=== PATIENT | male | born 1955 | race Caucasian/White ===

== ENCOUNTER 2025-03-18 21:28 | Emergency (ER) | payer MEDICARE, SELFPAY ==
[2025-03-18 21:43] VITALS: BP 120/73; PULSE 88; RESP 18; TEMP 36.6; O2SAT 94; BMI 30.8
--- NOTE | 2025-03-18 22:11 | ED_ITS ---
HPI - Altered Mental Status General Chief Complaint: Altered Mental Status Stated Complaint: H[place] from [place] ended up in [place]. Time Seen by Provider: 03/18/25 21:45 Source: family and EMS Mode of arrival: EMS Limitations: other History of Present Illness ED Provider: Dr. Coco Ayon HPI narrative: patient comes to the emergency room accompanied by EMS. Patient is a resident of [place], [place]. patient has history of frontotemporal dementia, frontotemporal CVA. Patient is awake alert, has no complaints, but given his history of dementia, he is unable to give any history. According to EMS, the patient was stopped by PD. Patient has a sharp location on his phone, and his family in [place] was able to track where he was. They called PD and they stopped him and brought him to the emergency room. Patient is unharmed. Patient is awake, alert, no complaints, states that he was on his way to get cup cakes. Patient drove a proximally 4 hours to [place]. Related Data Allergies Allergy/AdvReac Type Severity Reaction Status Date / Time No Known Allergies Allergy Verified 03/18/25 22:04 Review of Systems Review of Systems: Constitutional : No Weight loss, No Fever, No Chills, No Night Sweats, No Fatigue, No Malaise ENT/Mouth : No Hearing loss, No Ear Pain, No Nasal Congestion, No Sinus Pain, No Hoarseness, No sore throat, No Rhinorrhea, No Swallowing Difficulty Eyes: No Eye Pain, No Swelling, No Redness, No Foreign Body, No Discharge, No Vision Changes Cardiovascular : No Chest Pain, No SOB, No Dyspnea on Exertion, No Orthopnea, No Edema, No Palpitations Respiratory : No Cough, No Sputum, No Wheezing, No Smoke Exposure, No Dyspnea Gastrointestinal : No Nausea, No Vomiting, No Diarrhea, No Constipation, No abdominal Pain, No Hematochezia, No Melena Genitourinary : no irregular bleeding, No Dysuria, No Urinary Frequency, No Hematuria, No Urinary Incontinence, No Urgency, No Flank Pain, No Urinary Flow Changes, No Hesitancy Musculoskeletal : No joint pain, No Myalgias, No Joint Swelling Skin : No Skin Lesions, No rash Neuro : No Weakness, No Numbness, No Paresthesias, No Loss of Consciousness, No Dizziness, No Headache Psych : No Anxiety/Panic, No Depression, No SI/HI/AH/VH, No Social Issues, Heme/Lymph: No Bruising, No Bleeding,No Lymphadenopathy Endocrine : No Polyuria, No Polydipsia, No Temperature Intolerance Yes Other ( patient has history of dementia, however he has no complaints) ON LICENSE OF [facility] Social History Social History Do you have a plan to hurt others: No Plan Physical Exam ED Exam Exam: Appearance: Alert. Oriented X2. No acute distress. Eyes: Pupils equal, round and reactive to light. ENT: Pharynx normal. Neck: Normal inspection. Neck supple. No lymph nodes noted. No crepitus CVS: Normal heart rate and rhythm. Pulses normal. Normal S1 and S2 Respiratory: No respiratory distress. Breath sounds normal. No Wheezing. No rales Abdomen: Soft and nontender. No rigidity. No distention. Skin: Skin warm and dry. Normal skin color. Normal skin turgor. Extremities: No lower extremity edema. No Lacerations. No Rash Neuro: Oriented X 2. No motor deficit. No sensory deficit. Moving all extremities. No slurred speech. CN 2 through 12 grossly intact Psych: calm, cooperative, normal affect Vital Signs: Vital Signs - 24 hr 03/18/25 21:43 Temperature 97.8 F Pulse Rate 88 Respiratory Rate 18 Blood Pressure 120/73 Pulse Oximetry 94 Oxygen Delivery Method Room Air BMI result Body Mass Index 30.8 Course Course Course Narrative: patient's nurse was able to get in touch with the patient's daughter who is the healthcare proxy. They are on the way to pick him up. Patient has a appointments pending with his PCP and providers to address the frontotemporal dementia. The patient and her brother live 1/10 a mi away from the patient and they keep a close eye on him. They already started the process for permanent placement in [place]. Overall, seems that the patient is very caring and is on top of things. Patient is clean, appropriately dressed. I do not have any suspect of elderly neglect we will obtain a urinalysis to rule out UTI, otherwise, patient's seems to have good follow-up and care with his providers in [place]. Medical Decision Making Lab Data Labs: Lab Results 03/18/25 Range/Units 22:11 Urine Color Yellow Urine Appearance Clear Urine pH 6.0 (5.0-9.0) Ur Specific [place] >= 1.030 H (1.005-1.025) Urine Protein Negative (Neg-Trace) mg/dL Urine Glucose (UA) Negative (Negative) mg/dL Urine Ketones Negative (Negative) mg/dL Urine Blood Negative (Negative) Urine Nitrite Negative (Negative) Ur Leukocyte Esterase Negative (Negative) Discharge Plan Discharge Clinical Impression: Dementia Patient Disposition: Home, Self-Care Instructions: Dementia (ED) Additional Instructions: Please follow-up with your primary care physician tomorrow. If you have any worsening or new symptoms, please return to the emergency room or call 911
--- NOTE | 2025-03-18 22:11 | PC.NURSE ---
This RN spoke at length with pt daughter Rosalinda who reports pt dementia she has noted to be worsening recently. Daughter lives down the street from pt and checks on him frequently. She states she turned on location share on pts phone less than 2 weeks ago out of concern that something like this may happen at some point. Daughter states family is actively searching for assisted living for pt which he is aware of. Pt has upcoming PCP appointment to evaluate worsening dementia symptoms. Pt alert to person. Not able to have normal conversation with RN, discussing other random topics and lots of yes and no answers. Son en route at this time. MD Ayon notified of conversation with daughter and pt history. Pt sitting up in bed, neuros intact, able to follow directions well. Skin pwd respirations even unlabored. Offers no complaints. UA collected and sent for processing.
[2025-03-18 22:16] LABS: Appearance Urine Clear; Glucose Urine UA Negative (Negative); PH 6.0 (5.0-9.0); Specific Gravity - Urine >= 1.030 (1.005-1.025)
--- NOTE | 2025-03-18 22:24 | PC.NURSE ---
Pt son at bedside.
[2025-03-18 22:26] LABS: Cannabinoid Screen Urine Not Detected (Not Detect)
--- OUTSIDE RECORDS SUMMARY | 2025-03-18 22:37 | XMS_ITS | Clinical Summary ---
Author Organization [facility] Address [address] [address] Phone Care Team Providers Care Barber Stylist Name Role Phone Tor Aaron MD Primary Care Provider Allergies No known active allergies Medications allopurinol (ZYLOPRIM) 300 MG tablet TAKE 1 TABLET BY MOUTH EVERY DAY 0 Active clomiPHENE citrate (CLOMID) 50 mg tablet Take 50 mg by mouth. 0 Active ofloxacin (FLOXIN) 0.3 % otic solution Place 10 drops in ear(s). 1 Active potassium citrate (UROCIT-K) 10 mEq SR tablet 1 Active rosuvastatin (CRESTOR) 10 MG tablet TAKE 1 TABLET BY MOUTH EVERY DAY 1 Active sildenafiL (VIAGRA) 100 mg tablet Take 100 mg by mouth daily as needed. Active ELIQUIS DVT-PE TREAT 30D START 5 mg (74 tabs) tablets in DVT/PE starter pack PLEASE SEE ATTACHED FOR DETAILED DIRECTIONS 2 Active cyanocobalamin, vitamin B-12, 500 MCG tablet Take 500 mcg by mouth daily. 2 Active anastrozole (ARIMIDEX) 1 mg tablet Take 1/2 tablet twice weekly. 2 Active tamsulosin (FLOMAX) 0.4 mg Cap Take 0.4 mg by mouth. 2 Active moxifloxacin (VIGAMOX) 0.5 % ophthalmic solutionIndicat ions:Age-relate d nuclear cataract of right eye Place 1 drop into the right eye 4 (four) times a day. Please, follow instruction for cataract surgery 3 mL 1 4 Active Additional Information Patient not taking.Reported on 10/30/2023 Active Problems Problem Noted Date Diagnosed Date Pseudophakia, both eyes 11/03/2020 Overview (09/17/2023): - s/p phaco/PCIOL left eye 03/21/2021 uncomplicated ([place]) - s/p phaco/PCIOL (vivity) right eye 09/17/2023 uncomplicated ([place]) Assessment & Plan (11/15/2023 9:42 AM EDT): - exam today should have been rescheduled. This CEE was scheduled last year before his cataract evaluation - his vision is excellent and he is happy - DFE remains WNL - He did come in recently for vision clearance for [facility] [employer] certificate - HVF 24-2 TEO standard obtained per [employer] request and is available to patient. He has non-specific mild scattered defects in both eyes - His visual acuity is excellent after cataract surgery in both eyes. 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 Separate from his visual function, I would recommend he have a cognitive/neurologic evaluation to obtain clearance. This was discussed with the patient in detail today. I also discussed this directly with his PCP, who has attempted to contact the patient to coordinate. I discussed with Lebron today he should get in touch with his PCP to coordinate necessary neuro clearance. After this is obtained I can provide the vision documentation. 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 He has non-specific mild scattered defects in both eyes - His visual acuity is excellent after cataract surgery in both eyes. 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 Separate from his visual function, I would recommend he have a cognitive/neurologic evaluation to obtain clearance Assessment & Plan (10/30/2023 9:36 AM EDT): - excellent vision at distance and near - s/p phaco/IOL of cynthia parsons - Doing well, patient happy with results - Vision improved - Complete drop taper, discussed instructions, written instructions provided - OK to use artificial tears QID in both eyes, but should not use prednisolone acetate for more than 1 more week - Instructions given to patient - OTC readers as needed for fine print Needs HVF for FAA approval Assessment & Plan (09/25/2023 3:13 PM EDT): - POW#1 s/p phaco/IOL of the right eye - vivity OD - vision is 20/20 uncorrected in each eye - Doing well, vision improved - Taper less drops: 3x/day x 1 wk, then 2x/day x 1 wk, then 1x/day x 1 wk, then stop - No swimming for 1 month - Endophthalmitis/RD precautions Assessment & Plan (09/17/2023 4:35 PM EDT): - POD#0 s/p phaco/PCIOL of the right eye - Start or continue using prednisolone acetate/moxi in the operative eye 4x/day until follow up - Okay to shower with eye closed or covered - No strenuous activity, heavy lifting, bending over at the waist, eye rubbing, or direct water into eye - No swimming or hot tubs for 1 month - Shield at night for 1-2 weeks - Eye protection when outside - Endophthalmitis/RD precautions - Call or RTC TARIK with any concerns related to surgery - F/U 1 week for POW#1 visit Assessment & Plan (11/06/2021 9:35 AM EDT): - PCIOL in good position - excellent vision - monitor for PCO Assessment & Plan (04/24/2021 9:04 AM EST): - s/p phaco/IOL of the left eye - Doing well, patient happy with results - Vision improved - Complete drop taper, use pred daily for 1 week then stop, he expressed understanding - Instructions given to patient - Dispense MRx Assessment & Plan (03/30/2021 11:29 AM EST): - POW#1 s/p phaco/IOL of the left eye - Doing well, vision improved - Taper less drops: 3x/day x 1 wk, then 2x/day x 1 wk, then 1x/day x 1 wk, then stop - Continue shield at night, no bending over, no straining, no heavy lifting for 1 more week - No swimming for 1 month - Reviewed endophthalmitis/RD precautions - F/u in 3 weeks for POM1 visit with ARMr ayex Assessment & Plan (03/22/2021 8:44 AM EST): - POD#1 s/p phaco/PCIOL of the left eye - Start or continue using lessdrops (prednisolone/moxifloxacin/nepafenac combo ophthalmic drop) or equivalent regimen in the operative eye 4x/day until follow up - Okay to shower with eye covered - No heavy lifting, bending over, eye rubbing, or direct water into eye - Shield at night for 2 weeks - Eye protection when outside - Reviewed post op instructions - Reviewed enophthalmitis/RD precautions - Call or RTC TARIK with any concerns related to surgery - F/U 1 week for POW#1 visit Assessment & Plan (11/03/2020 11:01 AM EDT): - The patient is reporting progressively worsening vision affecting ADLs, consistent with cataract symptoms - Visually significant cataract(s) of the left eye causing limitations in activities of daily living - Affected activities of daily living: vision affecting home activities, vision affecting ability to do hobbies and eyeglasses or in-office refraction do not improve vision enough - Risks, benefits, and alternatives of the procedure were discussed including loss of vision, infection, pain, bleeding, retinal detachment, need for second surgery, no improvement in vision, loss of eye - Lens options including monofocal, toric, presbyopia-correcting, and multifocal IOLs were discussed - Refractive target options including near, distance, and monovision were discussed - Surgical techniques including ORA and femtosecond laser assistance were discussed - Explained to the pt that the intended or first choice IOL may not be implanted at the time of surgery if the condition of the eye is deemed inapproptiate or unsafe for that IOL type - Discussed that although we may try to reduce dependence on glasses, they may still be required to fine tune distance, intermediate, and/or near vision after surgery - After reviewing above, the patient wishes to proceed with cataract surgery and informed consent obtained - Surgical Considerations - Dilation: dilates well - Flomax: yes, prior use, no longer using. Discussed increased complication rate - PXF/phacodonesis: no - Guttae: no (if yes, confirm pachymetry is less than 650 pre-op) - Narrow angles: no - Cass-operative diamox: no - Diabetic: no - Able to lie flat: yes - Contact lens wearer: no - Prior refractive surgery: no - Corneal Cyl: low cyl, monofocal - Plan for phaco/IOL left eye - Target: -0.25 diopters - Lens: monofocal - Anesthesia: topical - Location preference: per patient preference - Allergies reviewed, plan to use LessDrops (wdffntslfooe-rexzisteejkf-zkntjkais or equivalent) post op - Plan to proceed with second eye one month following surgery if recovery is uncomplicated - See surgical scheduler for surgical planning. Return for biometry or sooner as needed Resolved Problems Problem Noted Date Diagnosed Date Resolved Date Age-related nuclear cataract of right eye 03/22/2021 09/17/2023 Assessment & Plan (06/07/2023 2:32 PM EST): - The patient is reporting progressively worsening vision affecting ADLs, consistent with cataract symptoms - Visually significant cataract(s) of the right eye causing limitations in activities of daily living - Affected activities of daily living: vision affecting home activities, vision affecting ability to do hobbies, and eyeglasses or in-office refraction do not improve vision enough - Risks, benefits, and alternatives of the procedure were discussed including loss of vision, infection, pain, bleeding, retinal detachment, need for additional surgery, no improvement in vision, loss of eye - Lens options including monofocal and premium IOLs (toric, presbyopia- correcting, extended depth of focus, multifocal, and light adjustable) were discussed - Refractive target options including near, distance, and monovision were discussed - Surgical techniques including ORA and femtosecond laser assistance were discussed - The intended or first choice IOL may not be implanted at the time of surgery if the condition of the eye is deemed inappropriate or unsafe for that IOL type - Discussed that although we may try to reduce dependence on glasses, they may still be required to fine tune distance, intermediate, and/or near vision after surgery - After reviewing the above information, the patient wishes to proceed with cataract surgery and informed consent obtained - Surgical Considerations - Dilation: dilates well - Flomax: flomax - PXF/phacodonesis/guttae: no - Dry eye: no, discussed cataract surgery can worsen dry eye - Diabetic: no - Other potentially vision limiting conditions: no - Able to lie flat: yes - History of panic attacks or claustrophobia: no - Contact lens wearer: no - Prior refractive surgery: no - Corneal Cyl: moderate, consider vivity toric - Plan for phaco/IOL right eye - Target: plano to -0.25 diopters. Vivity or vivity toric - Lens: vivity or vivity toric. Discussed limitations. Discussed may still need glasses - Anesthesia: topical - Location preference: per patient preference - Allergies reviewed, plan to use LessDrops (byqlzjhbjdke-uacfvjyrgkhq-bnecauozo or equivalent) post op - See surgical scheduler for surgical planning. Return for biometry or sooner as needed Assessment & Plan (02/26/2023 4:09 PM EST): - impacting acuity but right eye is still providing some limited monovision benefit - He reports noticing a difference when he compares the eyes, but does not endorse impact on ADLs - Discussed surgery is appropriate when he is ready and feels right eye is impacting him - Discussed again in detail the benefit of monovision which is allowing to have some reading ability currently without specs, he has a difficult time understanding this unfortunately - discussed surgical options at length vs continued observation - He decidedes to defer for now. May be interested in vivity in the future for the right eye given that he wants to be able to see distance and near vision, but it unclear whether he is fully on board with monovision (does not like it when he can notice the difference between the two eyes for distance vision, and does not like the impact on depth perception) - discussed calling if worsening, otherwise reassess in 1 year as scheduled Assessment & Plan (11/09/2022 9:44 AM EDT): - impacting acuity but right eye is still providing some limited monovision benefit - He is not bothered and reports no impact on his ADLs - Discussed surgery is appropriate when he is ready and feels right eye is impacting him - For now he is not bothered and he would like to defer - discussed calling if worsening, otherwise reassess in 1 year Assessment & Plan (11/06/2021 9:35 AM EDT): - Cataract(s) are not visually significant at this time - Patient does not endorse significant impact on activities of daily living - Patient does not endorse significant impairment from glare symptoms - Continue with best spectacle correction with anti-glare coating as needed - Dispense MRx Assessment & Plan (04/24/2021 9:04 AM EST): - Vision today is 20/25 - Today he does not endorse any impact on ADLs and does not endorse any glare symptoms - Will hold off on surgery for now, patient is in agreement Assessment & Plan (03/30/2021 11:29 AM EST): - The patient is reporting progressively worsening vision affecting ADLs, consistent with cataract symptoms - Visually significant cataract(s) of the right eye causing limitations in activities of daily living - Affected activities of daily living: vision affecting home activities, vision affecting ability to do hobbies and eyeglasses or in-office refraction do not improve vision enough - 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 - This is a second eye - Risks, benefits, and alternatives of the procedure were discussed including loss of vision, infection, pain, bleeding, retinal detachment, need for second surgery, no improvement in vision, loss of eye - Lens options including monofocal, toric, presbyopia-correcting, and multifocal IOLs were discussed - Refractive target options including near, distance, and monovision were discussed - Surgical techniques including ORA and femtosecond laser assistance were discussed - Explained to the pt that the intended or first choice IOL may not be implanted at the time of surgery if the condition of the eye is deemed inapproptiate or unsafe for that IOL type - Discussed that although we may try to reduce dependence on glasses, they may still be required to fine tune distance, intermediate, and/or near vision after surgery - After reviewing above, the patient wishes to proceed with cataract surgery and informed consent obtained - Surgical Considerations: - flomax prior use - needs epi-venessa and possible malyugin - Plan for phaco/IOL right eye - Second eye - Target: -0.25 diopters, plan to match 1st eye - Lens: monofocal - Anesthesia: topical - Location preference: per patient preference - Biometry already obtained - Plan for POD#1 and dilated exam at POW#1 with me, then final refraction with me or optometry one month after second eye - See surgical scheduler for surgical planning Assessment & Plan (03/22/2021 8:44 AM EST): - consider second eye at POW1 Social History Tobacco Use Types Packs/Day Years Used Date Smoking Tobacco: Never Smokeless Tobacco: Never Tobacco Cessation:Counseling Given: Not Answered Education Answer Date Recorded Are you interested in more education? Not on jenniffer e 07/27/2022 Are you concerned about learning? Not on file 07/27/2022 No 07/27/2022 No 07/27/2022 Digital Access Answer Date Recorded No 08/27/2022 No 08/27/2022 Reliable internet access at home? Not on file 08/27/2022 Device with a working camera? Not on file Sex and Gender Information Value Date Recorded Sex Assigned at Not on file Legal Sex Male 9:21 AM EST Gender Identity Not on file Sexual Orientation Not on file Last Filed Vital Signs Vital Sign Reading Time Taken Comments Blood Pressure - - Pulse - - Temperature - - Respiratory Rate - - Oxygen Saturation - - Inhaled Oxygen Concentration - - Weight 113.4 kg (250 lb) 03/30/2024 11:10 AM EST Height 182.9 cm (6') 03/01/2023 8:33 AM EST Body Mass Index 33.91 03/01/2023 8:33 AM EST Plan of Treatment Health Maintenance Due Date Last Done Comments CREATININE LEVEL 1953 DEPRESSION SCREENING 1965 COLOGUARD 1998 COLONOSCOPY 1998 COLORECTAL CANCER SCREENING 1998 FIT TEST 1998 FOBT 1998 SIGMOIDOSCOPY 1998 VIRTUAL COLONOSCOPY 1998 INFLUENZA VACCINE (#1) 2024 , 12/20/2021, 12/31/2015 COVID-19 VACCINE (3 - season) 2024 04/28/2022, 11/29/2021 RSV VACCINE (1 - 1-dose 75+ series) 2028 LIPID PANEL 10/06/2028 10/07/2023, 07/0 10/2023, 04/10/2022, Additional history exists Adult Td,Tdap Booster 03/14/2031 03/14/2021 HEPATITIS C SCREENING Completed 08/13/2018 ZOSTER VACCINES Completed 12/29/2018, 07/31, 08/05/2015 PNEUMOCOCCAL VACCINES (50+ years) Completed 06/25/2022, 03/08/2020, 03/05/2019 SMOKING STATUS SCREENING (Once After 26 Yrs) Completed 05/05/2024 HEPATITIS A VACCINES Aged Out No long er eligible based on patient's age to complete this topic HIB VACCINES Aged Out No longer eligi ble based on patient's age to complete this topic MENINGOCOCCAL VACCINES (ACWY) Aged Out No longer eligible based on patient's age to complete this topic MENINGOCOCCAL VACCINES (B) Aged Out N o longer eligible based on patient's age to complete this topic Medical Devices Not on file Insurance MEDICARE PART A & [employer] PREFERRED PPO REPLACEMENT MEDICARE PART A [employer] MED[employer] PREF[place]ED PPO REPLACEMENT Care Teams Barber Stylist Relationship Specialty Start Date End Date Tor Aaron MD [address] [address] [place] [address] PCP - General Family Medicine 06/10/23 Additional Source Comments The information contained in this document represents components of the legal health record. It is not the complete legal health record.[facility]
[2025-03-18 22:49] VITALS: BP 120/73; PULSE 88; RESP 18; TEMP 36.6; O2SAT 94
== END 2025-03-18 22:51 | disposition home or self-care (01) ==
LOC: HO.ED 22:33
PROVIDERS: Emergency Provider Emergency Medicine
DX: F03.90 Unspecified dementia, unspecified severity, without behavioral disturbance, psychotic disturbance, mood disturbance, and anxiety (principal); Z86.73 Personal history of transient ischemic attack (TIA), and cerebral infarction without residual deficits
CPT/HCPCS: 80307; 81003; 99283; 99284